=== PATIENT | female | born 1975 | race Hispanic/Latino ===

== ENCOUNTER 2018-06-01 09:53 | Inpatient (IN) | payer OTHER ==
[2018-06-01] MEDS: GI COCKTAIL 50ML BTL(HYOSCYAMINE/MAALOX/LIDOCAINE VISCOUS)(1:3:1) PO (10:52)
[2018-06-01] MEDS: PANTOPRAZOLE 40MG INJ (PROTONIX) (C9113) IV (10:52)
[2018-06-01] MEDS: NS 1,000 ML IV (10:52)
[2018-06-01 11:00] LABS: BASO % 0.5 % (0.0-1.0); EOS # 0.1 10^3/uL (0.0-0.50); EOS % 2.2 % (0.0-3.0); HEMATOCRIT 42.6 % (36.0-47.0); HEMOGLOBIN 13.9 g/dl (12.0-15.5); IMMATURE GRANULOCYTE % 0.3 % (0-3.0); LYMPH % 26.6 % (24.0-44.0); MEAN CORPUSCULAR HEMOGLOBIN 29.6 pg (27.0-33.0); MEAN CORPUSCULAR HGB CONC 32.6 g/dl (32.0-36.5); MEAN CORPUSCULAR VOLUME 90.6 fl (80.0-96.0); MONO # 0.4 10^3/uL (0.0-0.8); MONO % 10.2 % (0.0-5.0); NEUTROPHILS # 2.2 10^3/uL (1.8-7.7); NEUTROPHILS % 60.2 % (36.0-66.0); PLATELET COUNT, AUTOMATED 197 10^3/uL (150-450); WHITE BLOOD COUNT 3.7 10^3/uL (4.0-10.0)
[2018-06-01] MEDS: GASTROGRAFIN SOLUTION 30ML PO ×2 (11:03→11:33)
[2018-06-01 11:10] LABS: KETONE, URINE AUTO RFX NEGATIVE (NEGATIVE); LEUKOCYTE ESTERASE UR AUTO RFX NEGATIVE (NEGATIVE); NITRITE, URINE AUTO RFX NEGATIVE (NEGATIVE); RBC, URINE AUTO RFX 0 /HPF (0-3); SPECIFIC GRAVITY UR AUTO RFX 1.008 (1.002-1.035); SQUAM EPITHELIAL CELL UR AURFX 3 /HPF (0-6); WBC, URINE AUTO RFX 0 /HPF (0-3)
[2018-06-01 11:34] LABS: ALBUMIN 4.1 GM/DL (3.2-5.2); ALBUMIN/GLOBULIN RATIO 1.24 (1.00-1.93); ALKALINE PHOSPHATASE 215 U/L (45-117); ALT/SGPT 508 U/L (12-78); ANION GAP 4 MEQ/L (8-16); AST/SGOT 430 U/L (7-37); BILIRUBIN,TOTAL 1.2 MG/DL (0.2-1.0); BLOOD UREA NITROGEN 10 MG/DL (7-18); CALCIUM LEVEL 8.9 MG/DL (8.5-10.1); CARBON DIOXIDE LEVEL 26 MEQ/L (21-32); CHLORIDE LEVEL 108 MEQ/L (98-107); CREATININE FOR GFR 0.67 MG/DL (0.55-1.30); GLOMERULAR FILTRATION RATE > 60.0 (>58); GLUCOSE, FASTING 89 MG/DL (70-100); LIPASE 183 U/L (73-393); POTASSIUM SERUM 4.5 MEQ/L (3.5-5.1); SODIUM LEVEL 138 MEQ/L (136-145); TOTAL PROTEIN 7.4 GM/DL (6.4-8.2)
[2018-06-01] MEDS ORDERED: ISOVUE-370 76% 100ML VIAL (Q9967) As Ordered (12:37)
[2018-06-01] MEDS: KETOROLAC 30 MG/ML VIAL (J1885) IV ×2 (13:43→21:54)
[2018-06-01] MEDS ORDERED: ACETAMINOPHEN TAB 650MG DOSE (2X325MG) PO (16:45)
[2018-06-01] MEDS ORDERED: ONDANSETRON 4MG/2ML VIAL (J2405) IV (16:45)
[2018-06-01] MEDS: LR 1,000 ML IV (17:01)
[2018-06-01 20:03] LABS: ALBUMIN 3.6 GM/DL (3.2-5.2); ALBUMIN/GLOBULIN RATIO 1.16 (1.00-1.93); ALKALINE PHOSPHATASE 192 U/L (45-117); ALT/SGPT 398 U/L (12-78); AST/SGOT 175 U/L (7-37); BILIRUBIN,DIRECT 0.2 MG/DL (0.0-0.2); BILIRUBIN,TOTAL 0.7 MG/DL (0.2-1.0); TOTAL PROTEIN 6.7 GM/DL (6.4-8.2)
[2018-06-01] MEDS ORDERED: MORPHINE 4 MG/ML 1ML VIAL/SYRINGE (J2270) IV ×2 (21:45)
[2018-06-02] MEDS: LR 1,000 ML IV ×4 (01:30→19:02)
[2018-06-02 08:27] LABS: ALBUMIN 3.3 GM/DL (3.2-5.2); ALBUMIN/GLOBULIN RATIO 1.27 (1.00-1.93); ALKALINE PHOSPHATASE 150 U/L (45-117); ALT/SGPT 274 U/L (12-78); ANION GAP 6 MEQ/L (8-16); AST/SGOT 69 U/L (7-37); BILIRUBIN,TOTAL 0.7 MG/DL (0.2-1.0); BLOOD UREA NITROGEN 9 MG/DL (7-18); CALCIUM LEVEL 8.3 MG/DL (8.5-10.1); CARBON DIOXIDE LEVEL 22 MEQ/L (21-32); CHLORIDE LEVEL 109 MEQ/L (98-107); CREATININE FOR GFR 0.53 MG/DL (0.55-1.30); GLOMERULAR FILTRATION RATE > 60.0 (>58); GLUCOSE, FASTING 80 MG/DL (70-100); POTASSIUM SERUM 4.1 MEQ/L (3.5-5.1); SODIUM LEVEL 137 MEQ/L (136-145); TOTAL PROTEIN 5.9 GM/DL (6.4-8.2)
[2018-06-02] MEDS: PANTOPRAZOLE 40MG INJ (PROTONIX) (C9113) IV (08:37)
[2018-06-02] MEDS ORDERED: GLYCOPYRROLATE INJ 0.2 MG/ML 2 ML VIAL As Ordered (12:33)
[2018-06-02] MEDS ORDERED: ONDANSETRON 4MG/2ML VIAL (J2405) As Ordered (12:33)
[2018-06-02] MEDS ORDERED: dexameTHASONE 4 MG/ML 1ML VIAL (J1100) As Ordered (12:33)
[2018-06-02] MEDS ORDERED: PROPOFOL 200 MG/20 ML VIAL As Ordered (12:33)
[2018-06-02] MEDS ORDERED: NEOSTIGMINE 10 MG/10 ML VIAL (J2710) As Ordered (12:33)
[2018-06-02] MEDS ORDERED: ROCURONIUM BROMIDE 50 MG/5 ML VIAL As Ordered (12:33)
[2018-06-02] MEDS ORDERED: LIDOCAINE 2% INJ 100 MG/5 ML SDV (FOR ANES.) As Ordered (12:33)
[2018-06-02] MEDS ORDERED: fentaNYL 100 MCG/2 ML INJECTION (J3010) As Ordered (12:34)
[2018-06-02] MEDS ORDERED: MIDAZOLAM INJ 2 MG/2 ML VIAL (J2250) As Ordered (12:34)
[2018-06-02] MEDS ORDERED: SCOPOLAMINE 1MG TRANSDERMAL PATCH As Ordered (12:52)
[2018-06-02] MEDS: SCOPOLAMINE 1MG TRANSDERMAL PATCH TOP (12:55)
[2018-06-02] MEDS: ISOVUE-300 61% 50ML VIAL (Q9967) As Ordered (14:00)
[2018-06-02] MEDS ORDERED: ONDANSETRON 4MG/2ML VIAL (J2405) IV (14:45)
[2018-06-02] MEDS ORDERED: HYDROMORPHONE HCL 0.5 MG/ 0.5 ML SYRINGE (J1170 PER 1) IV (14:45)
[2018-06-02] MEDS ORDERED: fentaNYL 100 MCG/2 ML INJECTION (J3010) IV (14:45)
[2018-06-02] MEDS ORDERED: LR 1,000 ML IV (14:45)
[2018-06-03] MEDS: LR 1,000 ML IV ×4 (01:26→15:15)
[2018-06-03] MEDS: PANTOPRAZOLE 40MG INJ (PROTONIX) (C9113) IV (08:25)
[2018-06-03] MEDS: INFLUENZA QUADRIVALENT PF VACCINE 0.5ML SYRINGE (90686) IM (09:00)
[2018-06-03] MEDS ORDERED: dexameTHASONE 4 MG/ML 1ML VIAL (J1100) As Ordered (10:58)
[2018-06-03] MEDS ORDERED: LIDOCAINE 2% INJ 100 MG/5 ML SDV (FOR ANES.) As Ordered (10:58)
[2018-06-03] MEDS ORDERED: PROPOFOL 200 MG/20 ML VIAL As Ordered (10:58)
[2018-06-03] MEDS ORDERED: ROCURONIUM BROMIDE 50 MG/5 ML VIAL As Ordered (10:58)
[2018-06-03] MEDS ORDERED: ONDANSETRON 4MG/2ML VIAL (J2405) As Ordered ×2 (10:58→14:03)
[2018-06-03] MEDS ORDERED: fentaNYL 250 MCG/5 ML INJECTION (J3010) As Ordered (10:59)
[2018-06-03] MEDS ORDERED: MIDAZOLAM INJ 2 MG/2 ML VIAL (J2250) As Ordered (11:08)
[2018-06-03] MEDS: BUPIVACAINE HCL 0.25% 30 ML VIAL As Ordered (12:22)
[2018-06-03] MEDS ORDERED: HYDROmorphone HCL 2 MG/ML 1ML VIAL (J1170) As Ordered (12:42)
[2018-06-03] MEDS ORDERED: KETOROLAC 60 MG/2 ML VIAL (J1885) As Ordered (12:42)
[2018-06-03] MEDS ORDERED: NEOSTIGMINE 10 MG/10 ML VIAL (J2710) As Ordered (12:42)
[2018-06-03] MEDS ORDERED: GLYCOPYRROLATE INJ 0.2 MG/ML 2 ML VIAL As Ordered (12:42)
[2018-06-03] MEDS ORDERED: METOCLOPRAMIDE INJ 10MG/2ML VIAL (J2765) As Ordered (13:33)
[2018-06-03] MEDS ORDERED: NORCO, ANEXSIA 5/325MG TABLET (HYDROcodone/ACETAMINOPHEN) PO (13:45)
[2018-06-03] MEDS ORDERED: fentaNYL 100 MCG/2 ML INJECTION (J3010) As Ordered (14:03)
[2018-06-03] MEDS: fentaNYL 100 MCG/2 ML INJECTION (J3010) IV ×4 (14:05→14:30)
[2018-06-03] MEDS: ONDANSETRON 4MG/2ML VIAL (J2405) IV (14:05)
[2018-06-03] MEDS ORDERED: NORCO, ANEXSIA 5/325MG TABLET (HYDROcodone/ACETAMINOPHEN) As Ordered (14:24)
[2018-06-03] MEDS: NORCO, ANEXSIA 5/325MG TABLET (HYDROcodone/ACETAMINOPHEN) PO (14:40)
[2018-06-03] MEDS: KETOROLAC 30 MG/ML VIAL (J1885) IV (21:02)
[2018-06-04] MEDS: KETOROLAC 30 MG/ML VIAL (J1885) IV (04:52)
[2018-06-04] MEDS: PANTOPRAZOLE 40MG INJ (PROTONIX) (C9113) IV (09:03)
[2018-06-04] MEDS: INFLUENZA QUADRIVALENT PF VACCINE 0.5ML SYRINGE (90686) IM (09:03)
[2018-06-04] MEDS: LR 1,000 ML IV (09:45)
== END 2018-06-04 13:20 | disposition home or self-care (01) | DRG 419 ==
LOC: M ED 09:53 → M ED INP 16:34 → M PED 18:36
PROC: 0FT44ZZ Resection of Gallbladder, Percutaneous Endoscopic Approach (ICD-10-PCS; principal; 2018-06-02 13:14)
PROC: 0F798DZ Dilation of Common Bile Duct with Intraluminal Device, Via Natural or Artificial Opening Endoscopic (ICD-10-PCS; 2018-06-02 13:14)
DX: K80.70 Calculus of gallbladder and bile duct without cholecystitis without obstruction (principal); Z98.84 Bariatric surgery status; Z88.5 Allergy status to narcotic agent

== ENCOUNTER → 2018-12-06 | Outpatient (CLI) | payer OTHER ==
[~2018-12-06] MED LIST: B121000T PO; BIOT10TA2 PO; HYDR-3715 PO; TYLE325T5 PO; VITA-122 PO
--- NOTE | 2018-12-06 17:17 | REPMRS ---
Patient History The patient states she had a clinical breast exam in October 2018.Family history of breast cancer at age 70 in mother. denied. Digital Mammo Screening Bilat: December 06, 2018 - Exam #: [id number] Bilateral CC and MLO view(s) were taken. Technologist: Keerthi Rutledge, Technologist No prior studies available for comparison. FINDINGS: The breast tissue is heterogeneously dense. This may lower the sensitivity of mammography. There is no evidence of cancer on this mammogram. Assessment: BI-RADS/ACR category 2 mammogram. Benign Findings. Recommendation Routine screening mammogram of both breasts in 1 year (for women over age 40). This mammogram was interpreted with the aid of an FDA-approved computer-aided dectection system. Electronically Signed By: Oliver Machuca MD 12/06/18 2032
== END ==
LOC: M RAD 14:08
PROVIDERS: ATTEND Family Medicine
DX: Z12.31 Encounter for screening mammogram for malignant neoplasm of breast (principal); Z80.3 Family history of malignant neoplasm of breast

== ENCOUNTER 2019-02-10 07:39 | Observation (INO) | payer OTHER ==
[~2019-02-10] VITALS: Ht 154.9 cm; Wt 71.3 kg
[~2019-02-10 07:39] MED LIST changes: +MAPA325T2 PO
[2019-02-10] MEDS ORDERED: ceFAZolin SOD 1 GM in D5W MINI-BAG PLUS 50 ML IV ONE (08:00)
[2019-02-10] MEDS ORDERED: LR 1,000 ML IV ONE (08:00)
[2019-02-10] MEDS ORDERED: dexameTHASONE 4 MG/ML 1ML VIAL (J1100) As Ordered ONE (08:22)
[2019-02-10] MEDS ORDERED: ONDANSETRON 4MG/2ML VIAL (J2405) As Ordered ONE ×2 (08:22→13:08)
[2019-02-10] MEDS ORDERED: LIDOCAINE 2% INJ 100 MG/5 ML SDV (FOR ANES.) As Ordered ONE (08:22)
[2019-02-10] MEDS ORDERED: PROPOFOL 200 MG/20 ML VIAL As Ordered ONE (08:22)
[2019-02-10] MEDS ORDERED: ROCURONIUM BROMIDE 50 MG/5 ML VIAL As Ordered ONE ×2 (08:22→10:39)
[2019-02-10] MEDS ORDERED: fentaNYL 250 MCG/5 ML INJECTION (J3010) As Ordered ONE (08:22)
[2019-02-10] MEDS ORDERED: MIDAZOLAM INJ 2 MG/2 ML VIAL (J2250) As Ordered ONE (08:27)
[2019-02-10] MEDS ORDERED: SCOPOLAMINE 1MG TRANSDERMAL PATCH As Ordered ONE (08:27)
[2019-02-10 08:45] LABS: URINE PREG TEST NEGATIVE (NEGATIVE)
[2019-02-10] MEDS ORDERED: SCOPOLAMINE 1MG TRANSDERMAL PATCH TOP ONE (08:45)
[2019-02-10] MEDS ORDERED: BUPIVACAINE LIPOSOME/PF 1.3% 20ML VIAL (13.3MG/ML)(EXPAREL)(C9290 PER1MG) As Ordered ONE (08:59)
[2019-02-10] MEDS ORDERED: BACITRACIN PWD 50,000 UNITS VIAL As Ordered ONE ×2 (08:59→10:13)
[2019-02-10] MEDS ORDERED: ePHEDrine SULFATE 25 MG/5 ML(5MG/ML) SYRINGE As Ordered ONE ×2 (09:41→10:33)
[2019-02-10] MEDS ORDERED: HEPARIN SOD (PORCINE) 5000 UNITS/ML VIAL As Ordered ONE (09:53)
[2019-02-10] MEDS ORDERED: NEOSTIGMINE 10 MG/10 ML VIAL (J2710) As Ordered ONE (10:23)
[2019-02-10] MEDS ORDERED: GLYCOPYRROLATE INJ 0.2 MG/ML 2 ML VIAL As Ordered ONE (10:23)
[2019-02-10] MEDS ORDERED: KETOROLAC 60 MG/2 ML VIAL (J1885) As Ordered ONE (10:23)
[2019-02-10] MEDS ORDERED: ACETAMINOPHEN 1000MG 100ML IV BTL (OFIRMEV) (J0131 PER 10MG) As Ordered ONE (10:23)
[2019-02-10] MEDS ORDERED: HYDROmorphone HCL 2 MG/ML 1ML VIAL (J1170) As Ordered ONE (10:46)
--- NOTE | 2019-02-10 13:05 | POST-OPPD ---
Postoperative Procedure Note Date Of Procedure: Feb 10, 2019 PREOPERATIVE DIAGNOSIS: Panniculitis POSTOPERATIVE DIAGNOSIS: same FINDINGS: significant redundant skin abdomen, panniculitis PROCEDURE: Extended panniculectomy with rectus muscle plication SURGEON: Dr Post ANESTHESIA: General SPECIMENS: Pannus 2610 gm ESTIMATED BLOOD LOSS: 50cc REPLACED: none DRAINS: 10 mm YVONNE drains x 4 COMPLICATIONS: none POSTOPERATIVE CONDITION: Stable Dict: [id number] ANAI POST DO Feb 10, 2019 13:05
[2019-02-10] MEDS ORDERED: ONDANSETRON 4 MG ORAL DISINTEGRATING TAB (Q0162 PER 1MG) As Ordered ONE (13:08)
[2019-02-10] MEDS ORDERED: LR 1,000 ML IV SCH (13:30)
[2019-02-10] MEDS ORDERED: fentaNYL 100 MCG/2 ML INJECTION (J3010) IV PRN (13:30)
[2019-02-10] MEDS ORDERED: NORCO, ANEXSIA 5/325MG TABLET (HYDROcodone/ACETAMINOPHEN) PO PRN (13:30)
[2019-02-10] MEDS ORDERED: ONDANSETRON 4MG/2ML VIAL (J2405) IV PRN ×2 (13:30→13:45)
[2019-02-10] MEDS ORDERED: MORPHINE 4 MG/ML 1ML VIAL/SYRINGE (J2270) IV PRN (13:45)
[2019-02-10 14:30] VITALS: BP 115/69
[2019-02-10] MEDS: LR 1,000 ML IV SCH (14:52)
[2019-02-10] MEDS: NORCO, ANEXSIA 5/325MG TABLET (HYDROcodone/ACETAMINOPHEN) PO PRN ×2 (14:52→19:02)
[2019-02-10 15:00] VITALS: BP 101/54
[2019-02-10 16:00] VITALS: BP 101/54
[2019-02-10 17:30] VITALS: BP 107/59
[2019-02-10] MEDS: ceFAZolin SOD 1 GM in D5W MINI-BAG PLUS 50 ML IV SCH (17:59)
[2019-02-10 20:45] VITALS: BP 97/54
--- NOTE | 2019-02-10 22:39 | RO ---
DATE OF PROCEDURE: 02/10/2019 PREPROCEDURE DIAGNOSIS: Panniculitis. POSTPROCEDURE DIAGNOSIS: Panniculitis. PROCEDURE: Extended panniculectomy with rectus muscle plication. SURGEON: Julieta Phillips DO ANESTHESIA: General. SPECIMENS: Extended pannus 2610 grams. BLOOD LOSS: 50 mL. There were four Mk-Hernandez (YVONNE) drains left in place. No replacement needed. No complications. DESCRIPTION OF PROCEDURE: This is a 43-year-old female with significant weight loss status post gastric sleeve. The patient has extensive pannus with multiple complications with infections and difficulty walking. She is a good candidate for having the extended panniculectomy. She also has weakness in her rectus muscle, which plication was discussed with the patient as well as needed. After the informed consent was obtained, all the risks and benefits and alternatives were discussed with the patient, and she is ready to proceed. She was marked in preoperative holding area today in upright position. Then, she was brought into the operating room, placed in the supine position. Preoperative antibiotics were given. Sequential stockings were placed on the lower calves. General anesthesia was induced. Before the incision was made, 5000 units of heparin subQ were given to the patient as well. The lower incision is going to be 7 cm from the vaginal fold. Then, incision was carried out with a 10 blade, and then sharp dissection with electrocautery was done until the rectus fascia was identified. And then we started raising the flap superiorly along the fascial plane, maintaining hemostasis with electrocautery as we went along. Umbilicus was encountered and then the skin was resected around the umbilicus, and we continued elevating our flap until the xiphoid process and laterally with the costal margins. Then, the wound was irrigated with bacitracin irrigation solution. Exparel, long acting local anesthetic was injected into the rectus fascia, 10 cc. We again evaluated the rectus muscle. There was significant diastasis, which we repaired with interrupted #0 Vicryl sutures along the length of the linea alba, and then a running #1 PDS suture, and the patient was placed in the reflex position and the flap was reevaluated and measured with the excess tissue which was measured, marked and resected totaling 2610 grams. The flap was then tailored and packed with sweetheart clamps, and then we started our closure with interrupted #0 Vicryl sutures. Two 10 mm Mk-Hernandez drains for each side were placed through the horizontal incision, and then we continued our closure with interrupted #3-0 Monocryl sutures as well as the V-Loc suture, which was a #3-0 Monocryl suture as well. 10 cc of Exparel injected along the lower abdominal incision. After the inferior incision was closed, the new opening for the belly button was measured out and created using a knife and electrocautery, and the belly button was brought into view, it was in good vascular condition, and sutured in place with interrupted #3-0 and #4-0 Monocryl sutures as well as #5-0 plain gut sutures. Prineo was used as a dressing and Xeroform was used for the umbilicus. Compression dressing was placed. The patient was extubated in the operating room without any difficulty and transferred to the recovery room in stable condition. The Cohen catheter was placed before the procedure started and remained in place at the end of the procedure, and patient goes to recovery with it. OMAIRA
[2019-02-11 01:59] VITALS: BP 99/54
[2019-02-11] MEDS: LR 1,000 ML IV SCH (02:11)
[2019-02-11] MEDS: ceFAZolin SOD 1 GM in D5W MINI-BAG PLUS 50 ML IV SCH (02:11)
[2019-02-11] MEDS: NORCO, ANEXSIA 5/325MG TABLET (HYDROcodone/ACETAMINOPHEN) PO PRN ×4 (02:12→14:56)
[2019-02-11 07:16] VITALS: BP 102/51
--- NOTE | 2019-02-11 10:06 | IPNPDOC ---
Subjective General Date/Time Seen The patient was seen on 02/11/19 at 9:00. Subject Chief Complaint/History The patient is a 43-year-old female admitted with a reason for visit of Panniculitis. She is POD #1 s/p extended panniculectomy with rectus muscle plication. Doing well today with recovery. Pain controlled with PO medication. Ambulating, tolerating diet, urinating. Current Medications Current Medications Current Medications Acetaminophen/ Hydrocodone Bitart ([place], Anexsia 5/325) 1 tab ASDIRECTED PRN PO MILD/MODERATE PAIN (PS 1-7); Start 02/10/19 at 13:30; Stop 02/10/19 at 14:30; Status DC Acetaminophen/ Hydrocodone Bitart ([place], Anexsia 5/325) 1 tab Q4H PRN PO MILD PAIN (PS 1-4) Last administered on 02/11/19at 06:19; Start 02/10/19 at 13:45 Cefazolin Sodium 1 gm/Dextrose 50 ml @ 100 mls/hr Q8H IV Last administered on 02/11/19at 02:11; Start 02/10/19 at 18:00; Stop 02/11/19 at 02:29; Status DC Fentanyl Citrate (Sublimaze) 25 mcg Q5MP PRN IV MODERATE PAIN (PS 4-7); Start 02/10/19 at 13:30; Stop 02/10/19 at 14:30; Status DC Lactated Ringer's 1,000 ml @ 75 mls/hr [id number] IV Last administered on 02/11/19at 02:11; Start 02/10/19 at 13:45 Lactated Ringer's 1,000 ml @ 80 mls/hr [id number] IV ; Start 02/10/19 at 13:30; Stop 02/10/19 at 14:30; Status DC Morphine Sulfate (Morphine Sulfate Inj) 4 mg Q4H PRN IV SEVERE PAIN (PS 8-10); Start 02/10/19 at 13:45 Ondansetron HCl (ZOFRAN INJection) 4 mg Q4H PRN IV NAUSEA; Start 02/10/19 at 13:45 Ondansetron HCl (ZOFRAN INJection) 4 mg Q4HP PRN IV NAUSEA OR VOMITING Last administered on 02/10/19at 13:10; Start 02/10/19 at 13:30; Stop 02/10/19 at 14:30; Status DC Allergies Coded Allergies: oxycodone (Verified Allergy, Intermediate, hives, 02/07/19) Objective Physical Examination Examination GENERAL APPEARANCE:Patient seen, laying in bed, awake, alert, and oriented. Comfortable, in no acute distress. SKIN: Warm and moist. HEENT: Normocephalic, atraumatic. Seaview palpebral conjunctiva, anicteric sclerae. Lips and mucosa appear moist. NECK: Supple, no thyromegaly. No obvious jugular venous distention. LUNGS: Clear to auscultation bilaterally. No wheezing appreciated. HEART: No chest wall abnormalities. Regular rate and rhythm with no murmurs appreciated. ABDOMEN: Abdomen is Soft NT/ND. Incision intact, YVONNE drains with serosanguinous drainage. No ecchymosis, post op edema. EXTREMITIES: Extremities have no deformities. No edema identified. Vital Signs Vital Signs Date Time Temp Pulse Resp B/P (MAP) Pulse Ox O2 Delivery O2 Flow Rate FiO2 02/11/19 07:16 99.7 59 19 102/51 (68) 96 02/10/19 13:05 3 I&Os I&O- Last 24 Hours up to 6 AM 02/11/19 06:00 Intake Total 2050 ml Output Total 2520 ml Balance -470 ml Impression S/p panniculectomy with rectus muscle plication. Stable for discharge Post op instructions given to patient and . Monitor YVONNE drains. Keep binder on. HOB 45 degrees or 3 pillows and one pillow under the knees while in bed F/up plastic surgery office Thursday. Plan / VTE VTE Prophylaxis Ordered?: Yes ANAI POST DO Feb 11, 2019 10:06
[2019-02-11] MEDS ORDERED: HYDR-4571 PO (10:11)
[2019-02-11 14:13] VITALS: BP 103/51
== END 2019-02-11 15:10 | disposition home or self-care (01) ==
LOC: M SDC 07:39 → M MS5PR 13:05
PROVIDERS: ADMIT Plastic Surgery Surgery of the Hand; ATTEND Plastic Surgery Surgery of the Hand
DX: M79.3 Panniculitis, unspecified (principal); Z98.84 Bariatric surgery status; F17.210 Nicotine dependence, cigarettes, uncomplicated; Z88.5 Allergy status to narcotic agent; Z79.899 Other long term (current) drug therapy
CPT/HCPCS: 15830; 15847; 84703; 88302; 96365; 96376; C9290; J0131; J0690; J1100; J1170; J1885; J2250; J2405; J2710; J3010